=== PATIENT | female | born 1990 | race Caucasian/White ===

== ENCOUNTER → 2019-04-24 17:15 | Outpatient (CLI) | payer BC, SELFPAY ==
[2019-04-24 18:45] LABS: Chol/HDL Ratio 3.1 (1-3.5); Cholesterol 193 mg/dL (140-200); Free T4 (Free Thyroxine) 1.07 ng/dl (0.76-1.46); HDL Cholesterol 62 mg/dL (29-89); LDL Cholesterol 118 mg/dL (0-130); Thyroid Stimulating Hormone 0.34 uIU/ml (0.358-3.740); Triglycerides 63 mg/dL (30-200); VLDL Cholesterol 13 mg/dL (0-40)
[2019-04-24 18:57] LABS: Amphetamine/Metha Screen,Urine Negative ng/mL (<1000); Barbiturates Screen,Urine Negative ng/mL (<200); Benzodiazepines Screen,Urine Negative ng/mL (<200); Cannabinoid Screen,Urine Negative ng/mL (<50); Cocaine Screen,Urine Negative ng/mL (<300); Methadone Screen,Urine Negative ng/mL (<300); Opiate Screen,Urine Negative ng/mL (<300); Phencyclidine Screen,Urine Negative ng/mL (<25)
== END ==
PROVIDERS: Visit Provider Emergency Medicine
DX: E66.9 Obesity, unspecified (principal)
CPT/HCPCS: 80061; 80305; 84439; 84443